=== PATIENT | female | born 1955 | race Caucasian/White ===

== ENCOUNTER → 2019-12-02 | Outpatient (CLI) | payer MEDICARE, OTHER ==
[2016-05-29 06:09] VITALS: BP 95/62
[~2019-12-02] MED LIST: ACET325T9 PO; ALBU2.5V5 NEB; ALBU2.5V8 IH; ASPI1TAB31 PO; ASPI325T70 PO; BENZ100C PO; BIOT25006 PO; CALC-157 PO; CHOL10003 PO; CLON1TAB11 PO; CLON1TAB23 PO; DICL100G18 TP; DIPH25TA26 PO; FLUT12AE2 IH; FLUT16SP21 NS; FLUT1DIS5 IH; FLUT9.9S NS; GABA-586 PO; GUAI-108 PO; GUAI12003 PO; GUAI600T79 PO; IOHEXOL 300 MG/ML 75 ML VIAL. IV ONE; LAMO200T3 PO; LAMO200T6 PO; LEVO100T5 PO; LEVO200T PO; LEXAPRO10 MG PO; LITH150C PO; LITH300C PO; MAG30ORA2 PO; MAGN24003 PO; MELA1TAB6 PO; METH29OI TP; MONT10TA80 PO; MULT-207 PO; NAPR-683 PO; PNV1TABL12 PO; POLY15DR27 OU; PREN1TAB60 PO; PREN1TAB85 PO; PROP120C3 PO; PROP120C44 PO; PROP80CA45 PO; PYRI100T9 PO; RIZA10TA PO; SODI51CR DT; SUMA100T4 PO; SUMA6PEN2 SQ; TOPI50TA8 PO; TRAM-48 PO; TRAM50TA PO; TRAZ150T49 PO; VALA500T9 PO; ZOLP5TAB5 PO
--- NOTE | 2019-12-02 16:08 | RAD ---
CT abdomen and pelvis with and without contrast , Reason: ABNORMAL FINDINGS L KIDNEY ABD PAIN DIARRHEA / Spl. Instructions: / History: , Technique: Computed tomographic images of abdomen and pelvis were performed. Omnipaque 300 nonionic contrast material was administered intravenously without incident.: 75 CC PQRS Compliance Statement: One or more of the following individualized dose reduction techniques were utilized for this examination: 1. Automated exposure control 2. Adjustment of the mA and/or kV according to patient size 3. Use of iterative reconstruction technique Comparison: None FINDINGS: Scarring in the left lower lobe Postoperative changes of bariatric surgery are noted Gallbladder surgically absent. Liver appears unremarkable Several low-density splenic lesions with no suspicious characteristics are noted. Adrenal glands unremarkable Pancreas unremarkable 5 mm calculus is seen in the lower pole of both kidneys. No hydronephrosis or evidence of obstruction. No U ureter calculi. The bladder is distended. The ventral hernia is present with some herniated omentum. No bowel is herniated into the defect. No bowel obstruction noted. In the left upper abdomen associated with small bowel anastomotic segment there may be a nonobstructing intussusception. Nonpathologic sized mesenteric lymph nodes are present. No discrete fluid collections are present. Uterus surgically absent. Grade 1 anterior listhesis of L3 on L4 with moderate central stenosis. IMPRESSION: 5 mm calculi in the lower pole of both kidneys with no obstruction or hydronephrosis evident Posterior changes of bariatric surgery. There is possibly a small intestine intussusception without obstruction associated with a small bowel anastomosis in the left upper abdomen. Grade 1 anterior listhesis of L3 on L4 with associated moderate central spinal stenosis Small to moderate-sized ventral hernia with herniated omentum superior to the umbilicus Small low-density lesions in the spleen nonspecific with no overtly suspicious characteristics. Ultrasound can be obtained for further clarification. Electronically signed by: Manny Brizuela MD (12/02/2019 4:05 PM) [id number]
== END | disposition home or self-care (01) ==
LOC: CT 09:54
PROVIDERS: ATTEND Family Medicine
DX: K43.9 Ventral hernia without obstruction or gangrene (principal); N20.0 Calculus of kidney; N32.89 Other specified disorders of bladder; R93.422 Abnormal radiologic findings on diagnostic imaging of left kidney; R19.7 Diarrhea, unspecified; J98.4 Other disorders of lung; M43.16 Spondylolisthesis, lumbar region; M48.061 Spinal stenosis, lumbar region without neurogenic claudication; Z90.49 Acquired absence of other specified parts of digestive tract; Z90.710 Acquired absence of both cervix and uterus
CPT/HCPCS: 74178; Q9967

== ENCOUNTER → 2021-06-04 | Outpatient (CLI) | payer MEDICARE, OTHER ==
[2016-05-29 06:09] VITALS: BP 95/62
[~2021-06-04] MED LIST changes: -IOHEXOL 300 MG/ML 75 ML VIAL. IV ONE; +SUMA6PEN SQ; -SUMA6PEN2 SQ
--- NOTE | 2021-06-04 11:25 | RAD ---
Examination: Bilateral venous Doppler Indication: Leg swelling Technique: Ultrasound evaluation of the bilateral lower extremities was performed from the groin to t he upper calf with hastings scale, spectral and color doppler evaluation. Comparison: None Findings: There is normal venous flow and compressibility of bilateral common femoral veins, femoral veins, popliteal veins, and visualized proximal calf veins. Impression: No evidence for deep vein thrombosis of bilateral lower extremities from the level of the calf veins to the groins. Electronically signed by: Juan Jose Calvillo MD (06/04/2021 11:23 AM) [id number]
== END ==
LOC: US 10:42
PROVIDERS: ATTEND Family Medicine
DX: M79.661 Pain in right lower leg (principal); M79.662 Pain in left lower leg; M79.89 Other specified soft tissue disorders
CPT/HCPCS: 93970

== ENCOUNTER → 2021-08-28 | Outpatient (CLI) | payer MEDICARE, OTHER ==
[2016-05-29 06:09] VITALS: BP 95/62
--- NOTE | 2021-08-28 17:20 | RAD ---
EXAM: CT head without contrast INDICATION: Fall, concussion COMPARISON: None available TECHNIQUE: Axial CT imaging through the head without intravenous contrast. Sagittal and coronal refor mats were obtained. One or more of the following individualized dose reduction techniques were utilized for this examinat ion: 1. Automated exposure control 2. Adjustment of the mA and/or kV according to patient size 3. Use of iterative reconstruction technique. FINDINGS: The ventricles and sulci are prominent. Roth-white matter differentiation is maintained. There is no intracranial hemorrhage, acute infarct, or mass lesion. Basal cisterns are clear. The skull and scalp are intact. Paranasal sinuses and mastoid air cells are clear. Globes and orbits are intact. IMPRESSION: No acute intracranial abnormality. Electronically signed by: Arely Marlow MD (08/28/2021 5:17 PM) [id number]
== END ==
LOC: CT 16:25
PROVIDERS: ATTEND Family Medicine
DX: S06.0X0A Concussion without loss of consciousness, initial encounter (principal); W19.XXXA Unspecified fall, initial encounter; Y93.89 Activity, other specified; Y92.89 Other specified places as the place of occurrence of the external cause; Y99.8 Other external cause status
CPT/HCPCS: 36415; 70450; 82550; 84484